=== PATIENT | female | born 1960 | race African-American/Black ===

== ENCOUNTER 2016-11-25 15:17 | Inpatient (IN) | payer MEDICAID ==
[~2016-11-25] VITALS: Ht 160 cm; Wt 92.5 kg
[~2016-11-25 15:17] MED LIST: ALBUTEROL INHALER; ASPIRIN; ATENOLOL; GLIPIZIDE; METFORMIN
[2016-11-25] MEDS ORDERED: CLONIDINE 0.2MG TABLET PO ONE (17:00)
[2016-11-25] MEDS ORDERED: ONDANSETRON HCL 4MG/2ML VIAL IV ONE (17:00)
[2016-11-25 17:32] LABS: KETONES URINE NEGATIVE (NEGATIVE); LEUKOCYTE ESTERASE URINE NEGATIVE (NEGATIVE); NITRITE URINE NEGATIVE (NEGATIVE); OCCULT BLOOD URINE NEGATIVE (NEGATIVE); PH URINE 5.5 (4.5-8.0); PROTEIN URINE NEGATIVE (NEGATIVE); SPECIFIC GRAVITY URINE 1.043 (1.005-1.030); UROBILINOGEN URINE 0.2 E.U./dL (0.2-1.0)
[2016-11-25 17:32] LABS: BASOPHILS % 0.6 % (0.0-2.0); EOSINOPHILS % 0.7 % (0.0-5.0); HEMATOCRIT. 44.9 % (36.0-48.0); HEMOGLOBIN. 14.3 g/dL (12.0-16.0); LYMPHOCYTES % 21.4 % (20.0-50.0); MEAN CORPUSCULAR HEMOGLOBIN 22.2 pg (28.0-32.0); MEAN CORPUSCULAR VOLUME 69.5 fL (81.0-99.0); MEAN PLATELET VOLUME 8.9 fl (7.4-10.4); MONOCYTES % 6.9 % (2.0-8.0); NEUTROPHILS % 70.4 % (40.0-76.0); PLATELET 233 x1000/uL (130-400); RED BLOOD CELL COUNT 6.47 mill/uL (4.2-5.4); RED CELL DISTRIBUTION WIDTH 17.1 % (11.6-14.6)
[2016-11-25 17:35] LABS: CLARITY URINE CLEAR (CLEAR); COLOR URINE PALE YELLOW (YELLOW)
[2016-11-25 17:37] LABS: *AMPHETAMINES SCREEN URINE NEGATIVE (NEGATIVE); *BARBITURATES SCREEN URINE NEGATIVE (NEGATIVE); *BENZODIAZEPINES SCREEN URINE NEGATIVE (NEGATIVE); *COCAINE SCREEN URINE NEGATIVE (NEGATIVE); CANNABINOID URINE SCREEN NEGATIVE (NEGATIVE); METHADONE URINE SCREEN NEGATIVE (NEGATIVE); OPIATES URINE SCREEN NEGATIVE (NEGATIVE); PHENCYCLIDINE URINE SCREEN NEGATIVE (NEGATIVE)
[2016-11-25 17:37] LABS: CHLORIDE 103 mEq/L (98-107)
[2016-11-25 17:38] LABS: D-DIMER < 0.19 mg/L FEU (<0.50); PROTHROMBIN TIME 10.5 sec
[2016-11-25 17:42] LABS: CARBON DIOXIDE 30 mEq/L (21-32); ETHANOL BLOOD < 10 mg/dL
[2016-11-25 17:46] LABS: CREATINE KINASE 65 IU/L (26-192); TROPONIN I < 0.02 ng/mL (0.00-0.04)
[2016-11-25 17:47] LABS: PLATELET ESTIMATE NORMAL
[2016-11-25] MEDS ORDERED: HYDRALAZINE 20MG/ML VIAL IV ONE (18:45)
[2016-11-25] MEDS ORDERED: NAPR-681 PO (22:57)
[2016-11-25] MEDS ORDERED: ALBU18HF2 IH (22:57)
[2016-11-25] MEDS ORDERED: SIMV10TA6 PO (22:57)
[2016-11-25] MEDS ORDERED: LISI10TA5 PO (22:57)
[2016-11-25] MEDS ORDERED: FERR-63 PO (22:57)
[2016-11-25] MEDS ORDERED: ASPI-1159 PO (22:57)
[2016-11-25] MEDS ORDERED: HYDR453.3 TP (22:57)
[2016-11-25] MEDS ORDERED: METF850T2 PO (22:57)
[2016-11-25] MEDS ORDERED: CLON0.1T PO (22:57)
[2016-11-25] MEDS ORDERED: GLIP10TA10 PO (22:57)
[2016-11-25] MEDS ORDERED: ATEN50TA PO (22:57)
[2016-11-25] MEDS ORDERED: MORPHINE SULFATE 2 MG/ML CPJ (NOT FOR IM USE) IV PRN (23:15)
[2016-11-25] MEDS ORDERED: IPRATROPIUM/ALBUTEROL 0.5-3(2.5)MG/3ML NEB HHN PRN (23:15)
[2016-11-25] MEDS ORDERED: CLONIDINE 0.1MG TABLET PO PRN (23:15)
[2016-11-25] MEDS ORDERED: ACETAMINOPHEN 325MG TABLET PO PRN (23:15)
[2016-11-25] MEDS ORDERED: DEXTROSE 50% WATER 50ML SYRINGE IV PRN (23:15)
[2016-11-26 05:42] LABS: BASOPHILS % 0.3 % (0.0-2.0); HEMATOCRIT. 42.5 % (36.0-48.0); HEMOGLOBIN. 13.4 g/dL (12.0-16.0); MEAN CORPUSCULAR HEMOGLOBIN 22.2 pg (28.0-32.0); MEAN CORPUSCULAR VOLUME 70.1 fL (81.0-99.0); MEAN PLATELET VOLUME 9.3 fl (7.4-10.4); MONOCYTES % 5.8 % (2.0-8.0); NEUTROPHILS % 65.9 % (40.0-76.0); PLATELET 209 x1000/uL (130-400); RED BLOOD CELL COUNT 6.06 mill/uL (4.2-5.4); RED CELL DISTRIBUTION WIDTH 16.7 % (11.6-14.6)
[2016-11-26] MEDS ORDERED: HYDRALAZINE HCL 50MG TABLET PO SCH (06:00)
[2016-11-26 06:25] LABS: CARBON DIOXIDE 29 mEq/L (21-32); CHLORIDE 104 mEq/L (98-107); LDL CHOLESTEROL 123 mg/dL (5-100)
[2016-11-26 06:27] LABS: HDL CHOLESTEROL 52 mg/dL (40-59)
[2016-11-26] MEDS: INSULIN LISPRO 100 UNITS/ML SUBCUT SCH ×6 (06:33→21:35)
[2016-11-26] MEDS ORDERED: BLOOD SUGAR DIAGNOSTIC STRIP TEST SCH (06:45)
[2016-11-26] MEDS ORDERED: METFORMIN HCL 500MG TABLET PO SCH (07:15)
[2016-11-26 08:50] LABS: BASOPHILS % 0.3 % (0.0-2.0); EOSINOPHILS % 1.2 % (0.0-5.0); HEMATOCRIT. 44.6 % (36.0-48.0); LYMPHOCYTES % 26.1 % (20.0-50.0); MEAN CORPUSCULAR HEMOGLOBIN 22.1 pg (28.0-32.0); MEAN CORPUSCULAR VOLUME 70.6 fL (81.0-99.0); MEAN PLATELET VOLUME 8.9 fl (7.4-10.4); MONOCYTES % 6.6 % (2.0-8.0); NEUTROPHILS % 65.8 % (40.0-76.0); PLATELET 198 x1000/uL (130-400); RED BLOOD CELL COUNT 6.31 mill/uL (4.2-5.4); RED CELL DISTRIBUTION WIDTH 16.8 % (11.6-14.6)
[2016-11-26 09:00] LABS: PARTIAL THROMBOPLASTIN TIME 23.1 sec (24.0-34.0); PROTHROMBIN TIME 10.4 sec
[2016-11-26] MEDS ORDERED: ASPIRIN 81MG EC TABLET PO SCH (09:00)
[2016-11-26] MEDS ORDERED: LISINOPRIL 20MG TABLET PO SCH (09:00)
[2016-11-26] MEDS ORDERED: AMLODIPINE 10MG TABLET PO SCH (09:00)
[2016-11-26] MEDS: ENOXAPARIN 40MG/0.4ML SYR SUBCUT SCH (09:00)
[2016-11-26] MEDS ORDERED: METOPROLOL TARTRATE 50MG TABLET PO SCH (09:00)
[2016-11-26 09:07] LABS: CARBON DIOXIDE 29 mEq/L (21-32); CHLORIDE 106 mEq/L (98-107); TROPONIN I < 0.02 ng/mL (0.00-0.04)
[2016-11-26 09:31] LABS: BG BASE EXCESS 2.4 mmol/L (-2.0-2.0); BG CARBOXYHEMOGLOBIN 0.9 % (0.5-1.5); BG DEOXYHEMOGLOBIN 2.9 % (0.0-5.0); BG HCO3 ACT 26.7 mmol/L (22.0-26.0); BG METHEMOGLOBIN 0.2 % (0.0-1.5); BG OXYGEN SATURATION 97.1 % (92.0-98.5); BG PCO2 40.5 mmHg (35.0-45.0); BG PH 7.437 (7.350-7.450); BG SAMPLE SITE RIGHT RADIAL; BG TOTAL HEMOGLOBIN 13.9 g/dL (12.0-18.0); BG VENT MODE NASAL CANNULA
[2016-11-26] MEDS ORDERED: SODIUM CHLORIDE 0.9% 10ML VIAL ONE (10:58)
[2016-11-26] MEDS ORDERED: IOHEXOL-350 100 ML BOTTLE ONE (10:58)
[2016-11-26] MEDS ORDERED: DEXTROSE 50% WATER 50ML SYRINGE IV PRN (13:00)
[2016-11-26 13:19] LABS: BASOPHILS % 0.4 % (0.0-2.0); EOSINOPHILS % 0.9 % (0.0-5.0); HEMATOCRIT. 43.3 % (36.0-48.0); HEMOGLOBIN. 13.7 g/dL (12.0-16.0); LYMPHOCYTES % 23.4 % (20.0-50.0); MEAN CORPUSCULAR HEMOGLOBIN 22.2 pg (28.0-32.0); MEAN CORPUSCULAR VOLUME 70.2 fL (81.0-99.0); MEAN PLATELET VOLUME 8.8 fl (7.4-10.4); MONOCYTES % 6.2 % (2.0-8.0); NEUTROPHILS % 69.1 % (40.0-76.0); PLATELET 213 x1000/uL (130-400); RED BLOOD CELL COUNT 6.17 mill/uL (4.2-5.4)
[2016-11-26 13:26] LABS: PARTIAL THROMBOPLASTIN TIME 25.1 sec (24.0-34.0); PROTHROMBIN TIME 10.4 sec
[2016-11-26] MEDS ORDERED: ASPIRIN 300MG SUPP PR NR (13:30)
[2016-11-26] MEDS ORDERED: IPRATROPIUM/ALBUTEROL 0.5-3(2.5)MG/3ML NEB HHN PRN (13:30)
[2016-11-26 13:33] LABS: CARBON DIOXIDE 27 mEq/L (21-32); CHLORIDE 106 mEq/L (98-107); HDL CHOLESTEROL 52 mg/dL (40-59); LDL CHOLESTEROL 124 mg/dL (5-100); TROPONIN I < 0.02 ng/mL (0.00-0.04)
[2016-11-26] MEDS: DEXT 5%/0.45% NACL KCL 20MEQ/L 1,000 ML IV SCH (14:31)
[2016-11-26] MEDS: CEFEPIME 2,000 MG in DEXT 5% WATER 100 ML IV SCH (14:31)
[2016-11-26] MEDS: METRONIDAZOLE 500 MG PREMIX 100 ML IV SCH ×2 (15:09→21:23)
[2016-11-26] MEDS: BLOOD SUGAR DIAGNOSTIC STRIP TEST SCH ×2 (16:30→21:31)
[2016-11-26] MEDS: HYDRALAZINE 20MG/ML VIAL IV SCH (17:00)
[2016-11-26] MEDS: IPRATROPIUM/ALBUTEROL 0.5-3(2.5)MG/3ML NEB HHN SCH (20:47)
[2016-11-26] MEDS ORDERED: ATORVASTATIN CALCIUM 20MG TABLET PO SCH (21:00)
[2016-11-27] MEDS: IPRATROPIUM/ALBUTEROL 0.5-3(2.5)MG/3ML NEB HHN SCH ×4 (00:43→20:19)
[2016-11-27] MEDS: DEXT 5%/0.45% NACL KCL 20MEQ/L 1,000 ML IV SCH ×4 (01:14→21:50)
[2016-11-27] MEDS: CEFEPIME 2,000 MG in DEXT 5% WATER 100 ML IV SCH ×2 (02:44→14:27)
[2016-11-27 05:10] LABS: BASOPHILS % 0.2 % (0.0-2.0); HEMATOCRIT. 40.8 % (36.0-48.0); HEMOGLOBIN. 12.8 g/dL (12.0-16.0); LYMPHOCYTES % 24.6 % (20.0-50.0); MEAN CORPUSCULAR VOLUME 70.2 fL (81.0-99.0); MEAN PLATELET VOLUME 8.9 fl (7.4-10.4); MONOCYTES % 6.5 % (2.0-8.0); NEUTROPHILS % 67.7 % (40.0-76.0); PLATELET 184 x1000/uL (130-400); RED BLOOD CELL COUNT 5.81 mill/uL (4.2-5.4); RED CELL DISTRIBUTION WIDTH 16.8 % (11.6-14.6)
[2016-11-27] MEDS: HYDRALAZINE 20MG/ML VIAL IV SCH ×5 (06:00→23:43)
[2016-11-27] MEDS: METRONIDAZOLE 500 MG PREMIX 100 ML IV SCH ×3 (06:06→21:50)
[2016-11-27 06:07] LABS: CARBON DIOXIDE 25 mEq/L (21-32); CHLORIDE 107 mEq/L (98-107)
[2016-11-27] MEDS: BLOOD SUGAR DIAGNOSTIC STRIP TEST SCH ×4 (06:20→21:34)
[2016-11-27] MEDS: INSULIN LISPRO 100 UNITS/ML SUBCUT SCH ×6 (06:26→21:49)
[2016-11-27] MEDS ORDERED: ENALAPRIL 1.25MG/ML VIAL 1ML IV PRN (09:00)
[2016-11-27] MEDS: ENOXAPARIN 40MG/0.4ML SYR SUBCUT SCH (09:04)
[2016-11-27] MEDS: PANTOPRAZOLE SODIUM 40 MG/VIAL IV SCH (16:38)
[2016-11-28] MEDS: CEFEPIME 2,000 MG in DEXT 5% WATER 100 ML IV SCH ×2 (01:54→15:59)
[2016-11-28] MEDS: IPRATROPIUM/ALBUTEROL 0.5-3(2.5)MG/3ML NEB HHN SCH ×4 (02:46→20:17)
[2016-11-28] MEDS: DEXT 5%/0.45% NACL KCL 20MEQ/L 1,000 ML IV SCH ×3 (03:58→20:51)
[2016-11-28] MEDS: HYDRALAZINE 20MG/ML VIAL IV SCH (05:00)
[2016-11-28] MEDS: METRONIDAZOLE 500 MG PREMIX 100 ML IV SCH ×3 (05:00→21:04)
[2016-11-28 05:31] LABS: BASOPHILS % 0.1 % (0.0-2.0); EOSINOPHILS % 0.1 % (0.0-5.0); HEMATOCRIT. 39.7 % (36.0-48.0); HEMOGLOBIN. 12.7 g/dL (12.0-16.0); LYMPHOCYTES % 12.9 % (20.0-50.0); MEAN CORPUSCULAR HEMOGLOBIN 22.3 pg (28.0-32.0); MEAN PLATELET VOLUME 9.1 fl (7.4-10.4); MONOCYTES % 7.1 % (2.0-8.0); NEUTROPHILS % 79.8 % (40.0-76.0); PLATELET 200 x1000/uL (130-400); RED BLOOD CELL COUNT 5.67 mill/uL (4.2-5.4); RED CELL DISTRIBUTION WIDTH 16.5 % (11.6-14.6)
[2016-11-28] MEDS: BLOOD SUGAR DIAGNOSTIC STRIP TEST SCH ×3 (05:57→16:30)
[2016-11-28 06:05] LABS: CARBON DIOXIDE 23 mEq/L (21-32); CHLORIDE 109 mEq/L (98-107); PHOSPHORUS 2.9 mg/dL (2.5-4.9)
[2016-11-28] MEDS: INSULIN LISPRO 100 UNITS/ML SUBCUT SCH ×4 (06:07→20:46)
[2016-11-28 08:04] LABS: BG CARBOXYHEMOGLOBIN 0.8 % (0.5-1.5); BG DEOXYHEMOGLOBIN 2.9 % (0.0-5.0); BG FRACTION INSPIRED OXYGEN 28; BG HCO3 ACT 20.5 mmol/L (22.0-26.0); BG METHEMOGLOBIN 0.1 % (0.0-1.5); BG OXYGEN SATURATION 97.1 % (92.0-98.5); BG OXYHEMOGLOBIN 96.2 % (94.0-97.0); BG PCO2 32.2 mmHg (35.0-45.0); BG PH 7.422 (7.350-7.450); BG PO2 90.2 mmHg (75.0-100.0); BG SAMPLE SITE RIGHT RADIAL; BG TOTAL HEMOGLOBIN 13.1 g/dL (12.0-18.0); BG VENT MODE NASAL CANNULA
[2016-11-28] MEDS: PANTOPRAZOLE SODIUM 40 MG/VIAL IV SCH (09:46)
[2016-11-28] MEDS: ENOXAPARIN 40MG/0.4ML SYR SUBCUT SCH (09:46)
[2016-11-28] MEDS ORDERED: SODIUM CHLORIDE 0.9% 10ML VIAL ONE (11:08)
[2016-11-28] MEDS ORDERED: IOHEXOL-300 100 ML BOTTLE ONE (11:08)
[2016-11-28] MEDS ORDERED: MAGNESIUM 4 G PREMIX 100 ML IV NR (12:30)
[2016-11-28] MEDS ORDERED: ASPIRIN 300MG SUPP PR SCH (13:30)
[2016-11-29] MEDS: IPRATROPIUM/ALBUTEROL 0.5-3(2.5)MG/3ML NEB HHN SCH ×4 (01:10→20:56)
[2016-11-29] MEDS: CEFEPIME 2,000 MG in DEXT 5% WATER 100 ML IV SCH ×2 (02:07→15:00)
[2016-11-29] MEDS: ACETAMINOPHEN 650MG/20.3ML UDC NG PRN (03:38)
[2016-11-29] MEDS: DEXT 5%/0.45% NACL KCL 20MEQ/L 1,000 ML IV SCH (05:48)
[2016-11-29] MEDS: METRONIDAZOLE 500 MG PREMIX 100 ML IV SCH ×3 (05:49→22:20)
[2016-11-29] MEDS: INSULIN LISPRO 100 UNITS/ML SUBCUT SCH ×3 (05:57→19:02)
[2016-11-29 05:58] LABS: BASOPHILS % 0.3 % (0.0-2.0); EOSINOPHILS % 0.4 % (0.0-5.0); HEMATOCRIT. 38.7 % (36.0-48.0); HEMOGLOBIN. 12.2 g/dL (12.0-16.0); LYMPHOCYTES % 16.8 % (20.0-50.0); MEAN CORPUSCULAR HEMOGLOBIN 22.2 pg (28.0-32.0); MEAN CORPUSCULAR VOLUME 70.5 fL (81.0-99.0); MEAN PLATELET VOLUME 9.1 fl (7.4-10.4); NEUTROPHILS % 74.5 % (40.0-76.0); PLATELET 182 x1000/uL (130-400); RED BLOOD CELL COUNT 5.49 mill/uL (4.2-5.4); RED CELL DISTRIBUTION WIDTH 16.9 % (11.6-14.6)
[2016-11-29 06:22] LABS: CARBON DIOXIDE 23 mEq/L (21-32); CHLORIDE 109 mEq/L (98-107)
[2016-11-29 07:29] LABS: BG BASE EXCESS -3.1 mmol/L (-2.0-2.0); BG CARBOXYHEMOGLOBIN 0.7 % (0.5-1.5); BG DEOXYHEMOGLOBIN 1.6 % (0.0-5.0); BG HCO3 ACT 22.1 mmol/L (22.0-26.0); BG METHEMOGLOBIN 0.4 % (0.0-1.5); BG OXYGEN SATURATION 98.4 % (92.0-98.5); BG OXYHEMOGLOBIN 97.3 % (94.0-97.0); BG PCO2 40.2 mmHg (35.0-45.0); BG PH 7.358 (7.350-7.450); BG PO2 123.6 mmHg (75.0-100.0); BG SAMPLE SITE RIGHT RADIAL; BG TOTAL HEMOGLOBIN 13.1 g/dL (12.0-18.0); BG VENT MODE NASAL CANNULA
[2016-11-29] MEDS ORDERED: AMLODIPINE 2.5MG TABLET PO SCH (09:00)
[2016-11-29] MEDS: FAMOTIDINE 20MG/2ML VIAL IV SCH ×2 (09:29→22:19)
[2016-11-29] MEDS: ENOXAPARIN 40MG/0.4ML SYR SUBCUT SCH (09:30)
[2016-11-29] MEDS: ASPIRIN 81MG TABLET PEG SCH (09:31)
[2016-11-29] MEDS: MAGNESIUM OXIDE 400MG TABLET PO SCH (09:31)
[2016-11-29] MEDS ORDERED: AMLODIPINE 2.5MG TABLET NG SCH (10:00)
[2016-11-29] MEDS ORDERED: LIDOCAINE HCL/PF 1% 2ML VIAL ONE (10:49)
[2016-11-29] MEDS: BLOOD SUGAR DIAGNOSTIC STRIP TEST SCH ×2 (12:08→18:45)
[2016-11-29] MEDS: HYDRALAZINE 20MG/ML VIAL IV PRN (13:54)
[2016-11-29] MEDS: AMLODIPINE 5MG TABLET NG SCH (22:20)
[2016-11-30] MEDS: HYDRALAZINE 20MG/ML VIAL IV PRN (01:21)
[2016-11-30] MEDS: CEFEPIME 2,000 MG in DEXT 5% WATER 100 ML IV SCH ×2 (01:35→17:50)
[2016-11-30] MEDS: IPRATROPIUM/ALBUTEROL 0.5-3(2.5)MG/3ML NEB HHN SCH ×4 (01:54→19:49)
[2016-11-30] MEDS: METRONIDAZOLE 500 MG PREMIX 100 ML IV SCH ×3 (05:20→22:29)
[2016-11-30] MEDS: BLOOD SUGAR DIAGNOSTIC STRIP TEST SCH ×4 (05:20→17:49)
[2016-11-30] MEDS: INSULIN LISPRO 100 UNITS/ML SUBCUT SCH ×5 (05:28→18:00)
[2016-11-30 06:48] LABS: PARTIAL THROMBOPLASTIN TIME 26.4 sec (23.4-31.0); PROTHROMBIN TIME 10.4 sec (9.4-11.6)
[2016-11-30 07:25] LABS: BASOPHILS % 0.2 % (0.0-2.0); CHLORIDE 105 mEq/L (98-107); EOSINOPHILS % 0.3 % (0.0-5.0); HEMATOCRIT. 40.1 % (36.0-48.0); HEMOGLOBIN. 12.7 g/dL (12.0-16.0); LYMPHOCYTES % 13.1 % (20.0-50.0); MEAN CORPUSCULAR HEMOGLOBIN 22.2 pg (28.0-32.0); MEAN CORPUSCULAR VOLUME 70.1 fL (81.0-99.0); MEAN PLATELET VOLUME 9.4 fl (7.4-10.4); MONOCYTES % 6.7 % (2.0-8.0); NEUTROPHILS % 79.7 % (40.0-76.0); PLATELET 205 x1000/uL (130-400); RED BLOOD CELL COUNT 5.73 mill/uL (4.2-5.4); RED CELL DISTRIBUTION WIDTH 16.7 % (11.6-14.6)
[2016-11-30 07:28] LABS: CARBON DIOXIDE 28 mEq/L (21-32); PHOSPHORUS 2.4 mg/dL (2.5-4.9)
[2016-11-30] MEDS: ASPIRIN 81MG TABLET PEG SCH (08:37)
[2016-11-30] MEDS: AMLODIPINE 5MG TABLET NG SCH ×2 (08:37→22:28)
[2016-11-30] MEDS: MAGNESIUM OXIDE 400MG TABLET PO SCH (08:37)
[2016-11-30] MEDS: FAMOTIDINE 20MG/2ML VIAL IV SCH ×2 (08:41→22:27)
[2016-11-30] MEDS ORDERED: BACITRACIN/POLYMYXIN B SULFATE OINT 28.35GM TOP ONE (12:46)
[2016-11-30] MEDS ORDERED: VANCOMYCIN HCL 500 MG/VIAL ONE (12:46)
[2016-11-30] MEDS ORDERED: SIMETHICONE 40 MG/0.6 ML 30ML ONE (14:08)
[2016-11-30] MEDS ORDERED: SODIUM CHLORIDE 0.9% 10ML VIAL ONE (14:08)
[2016-11-30] MEDS ORDERED: FENTANYL CITRATE/PF 50MCG/ML 2ML VIAL ONE (15:23)
[2016-11-30] MEDS ORDERED: MIDAZOLAM HCL 5 MG/5 ML VIAL ONE (15:23)
[2016-11-30] MEDS ORDERED: MIDAZOLAM HCL 5 MG/5 ML VIAL IV PRN (15:25)
[2016-11-30] MEDS ORDERED: FENTANYL CITRATE/PF 50MCG/ML 2ML VIAL IV PRN (15:27)
[2016-11-30] MEDS: CLONIDINE 0.1MG TABLET PO PRN (18:26)
[2016-11-30] MEDS: MORPHINE SULFATE 4 MG/ML CPJ (NOT FOR IM USE) IV PRN ×2 (18:57→22:36)
[2016-12-01] MEDS: INSULIN LISPRO 100 UNITS/ML SUBCUT SCH ×4 (01:30→18:05)
[2016-12-01] MEDS: BLOOD SUGAR DIAGNOSTIC STRIP TEST SCH ×4 (01:30→18:04)
[2016-12-01] MEDS: IPRATROPIUM/ALBUTEROL 0.5-3(2.5)MG/3ML NEB HHN SCH ×4 (01:45→20:15)
[2016-12-01] MEDS: CEFEPIME 2,000 MG in DEXT 5% WATER 100 ML IV SCH ×2 (04:34→15:04)
[2016-12-01] MEDS: METRONIDAZOLE 500 MG PREMIX 100 ML IV SCH ×3 (06:15→21:37)
[2016-12-01] MEDS: MAGNESIUM OXIDE 400MG TABLET PO SCH (08:52)
[2016-12-01] MEDS: FAMOTIDINE 20MG/2ML VIAL IV SCH ×2 (08:53→21:37)
[2016-12-01] MEDS: AMLODIPINE 5MG TABLET NG SCH ×2 (08:53→21:37)
[2016-12-01] MEDS: ASPIRIN 81MG TABLET PEG SCH (08:53)
[2016-12-01 09:41] LABS: BASOPHILS % 0.3 % (0.0-2.0); EOSINOPHILS % 0.5 % (0.0-5.0); HEMATOCRIT. 41.4 % (36.0-48.0); HEMOGLOBIN. 13.1 g/dL (12.0-16.0); LYMPHOCYTES % 14.2 % (20.0-50.0); MEAN CORPUSCULAR HEMOGLOBIN 22.3 pg (28.0-32.0); MEAN CORPUSCULAR VOLUME 70.5 fL (81.0-99.0); MEAN PLATELET VOLUME 9.1 fl (7.4-10.4); MONOCYTES % 7.2 % (2.0-8.0); NEUTROPHILS % 77.8 % (40.0-76.0); PLATELET 183 x1000/uL (130-400); RED BLOOD CELL COUNT 5.86 mill/uL (4.2-5.4); RED CELL DISTRIBUTION WIDTH 16.5 % (11.6-14.6)
[2016-12-01 09:55] LABS: CHLORIDE 105 mEq/L (98-107)
[2016-12-01 10:02] LABS: CARBON DIOXIDE 23 mEq/L (21-32)
[2016-12-01] MEDS: LIDOCAINE HCL 4% CREAM 76GM TUBE TP SCH ×2 (12:40→18:06)
[2016-12-01] MEDS: ACETAMINOPHEN 650MG/20.3ML UDC NG PRN (14:58)
[2016-12-01] MEDS: MORPHINE SULFATE 4 MG/ML CPJ (NOT FOR IM USE) IV PRN (22:20)
[2016-12-02] MEDS: IPRATROPIUM/ALBUTEROL 0.5-3(2.5)MG/3ML NEB HHN SCH ×3 (00:44→13:21)
[2016-12-02] MEDS: BLOOD SUGAR DIAGNOSTIC STRIP TEST SCH ×3 (00:47→12:00)
[2016-12-02] MEDS: INSULIN LISPRO 100 UNITS/ML SUBCUT SCH ×3 (00:51→13:11)
[2016-12-02] MEDS: CEFEPIME 2,000 MG in DEXT 5% WATER 100 ML IV SCH ×2 (02:45→14:57)
[2016-12-02] MEDS: METRONIDAZOLE 500 MG PREMIX 100 ML IV SCH ×2 (05:21→14:57)
[2016-12-02 06:18] LABS: BASOPHILS % 0.2 % (0.0-2.0); EOSINOPHILS % 2.6 % (0.0-5.0); HEMATOCRIT. 36.7 % (36.0-48.0); HEMOGLOBIN. 11.9 g/dL (12.0-16.0); LYMPHOCYTES % 14.4 % (20.0-50.0); MEAN CORPUSCULAR HEMOGLOBIN 22.7 pg (28.0-32.0); MEAN CORPUSCULAR VOLUME 70.2 fL (81.0-99.0); MEAN PLATELET VOLUME 8.9 fl (7.4-10.4); MONOCYTES % 8.1 % (2.0-8.0); NEUTROPHILS % 74.7 % (40.0-76.0); PLATELET 189 x1000/uL (130-400); RED BLOOD CELL COUNT 5.24 mill/uL (4.2-5.4); RED CELL DISTRIBUTION WIDTH 16.4 % (11.6-14.6)
[2016-12-02 06:40] LABS: CARBON DIOXIDE 29 mEq/L (21-32); CHLORIDE 103 mEq/L (98-107); PHOSPHORUS 3.2 mg/dL (2.5-4.9)
[2016-12-02] MEDS: AMLODIPINE 5MG TABLET NG SCH (09:35)
[2016-12-02] MEDS: MAGNESIUM OXIDE 400MG TABLET PO SCH (09:35)
[2016-12-02] MEDS: FAMOTIDINE 20MG/2ML VIAL IV SCH (09:35)
[2016-12-02] MEDS: ASPIRIN 81MG TABLET PEG SCH (09:36)
[2016-12-02] MEDS: LIDOCAINE HCL 4% CREAM 76GM TUBE TP SCH (09:36)
[2016-12-02] MEDS: CLONIDINE 0.1MG TABLET PO PRN (10:36)
[2016-12-02] MEDS ORDERED: LISINOPRIL 10MG TABLET PO SCH (12:45)
[2016-12-02] MEDS: ACETAMINOPHEN 650MG/20.3ML UDC NG PRN (13:10)
[2016-12-02 16:00] VITALS: BP 152/83
[2016-12-02] MEDS ORDERED: LACTULOSE 20G/30ML UDC PO NR (16:15)
== END 2016-12-02 17:42 | disposition short-term general hospital (02) | DRG 45 ==
LOC: ER 17:32 → 5WST 21:25 → EDBEDREQTM 21:29 → EDBEDREQ 21:29 → ENRESERV 21:38 → MICUSO 11-26 10:16 → MICUNO 11-26 10:33 → 5WST 11-29 16:30
PROVIDERS: ADMIT Internal Medicine; ATTEND Internal Medicine
PROC: 0DH63UZ Insertion of Feeding Device into Stomach, Percutaneous Approach (ICD-10-PCS; principal; 2016-11-30)
DX: I63.9 Cerebral infarction, unspecified (principal); J96.00 Acute respiratory failure, unspecified whether with hypoxia or hypercapnia; J69.0 Pneumonitis due to inhalation of food and vomit; E46 Unspecified protein-calorie malnutrition; G81.91 Hemiplegia, unspecified affecting right dominant side; R13.12 Dysphagia, oropharyngeal phase; E83.42 Hypomagnesemia; J44.0 Chronic obstructive pulmonary disease with (acute) lower respiratory infection; I11.9 Hypertensive heart disease without heart failure; E66.01 Morbid (severe) obesity due to excess calories; E87.6 Hypokalemia; E11.9 Type 2 diabetes mellitus without complications; E78.00 Pure hypercholesterolemia, unspecified; F80.9 Developmental disorder of speech and language, unspecified; I51.7 Cardiomegaly; J98.11 Atelectasis; K29.70 Gastritis, unspecified, without bleeding; Z79.82 Long term (current) use of aspirin; Z79.899 Other long term (current) drug therapy; Z79.84 Long term (current) use of oral hypoglycemic drugs; Z68.36 Body mass index [BMI] 36.0-36.9, adult; Z87.891 Personal history of nicotine dependence; Z91.19 Patient's noncompliance with other medical treatment and regimen; Z93.1 Gastrostomy status
CPT/HCPCS: 36415; 36600; 70450; 70470; 70496; 70498; 70551; 71010; 80048; 80053; 80061; 80076; 80305; 81001; 82375; 82550; 82805; 82962; 83036; 83735; 83880; 84100; 84443; 84484; 85025; 85379; 85384; 85610; 85730; 86850; 86900; 92610; 93005; 93306; 93970; 94640; 96374; 96375; 97112; 97162; 97167; 97530; 99285; A4216; A6261; C9113; G0482; J0360; J0692; J1650; J1815; J2250; J2270; J2405; J3010; J3370; J3475; J3490; J7030; J7040; J7050; J7060; J7620; Q9967; A4315